=== PATIENT | female | born 1985 | race Caucasian/White ===

== ENCOUNTER → 2017-10-14 | Outpatient (CLI) | payer MEDICARE, OTHER ==
--- NOTE | 2017-10-14 08:56 | CT ---
EXAMINATION TYPE: CT brain wo/w con DATE OF EXAM: 10/14/2017 COMPARISON: 01/04/2016 HISTORY: Patient has no complaints at time of study. 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 CT DLP: 1592 mGycm, Automated exposure control for dose reduction was used. CONTRAST: Patient injected with 100 mL of Isovue 300. CT of the brain is performed utilizing 3 mm thick sections through the posterior fossa and 3 mm thick sections through the remaining calvarium. Study is performed within 24 hours of arrival to the hospital. No abnormal hyperdensity is present to suggest an acute intracranial hemorrhage. There is a large very hypodense area measuring -100 Hounsfield units with peripheral calcifications a long the midline falx displacing the brain laterally. This is explained the lateral ventricles and ex tends towards the third ventricle. Size and configuration of this irregular area is stable from the c omparison. Lateral ventricles appear normal. No temporal horn dilatation is evident. Third ventricle is slightly prominent. Fourth ventricle is normal and midline. No edema is adjacent to this structure. There appears to be preservation of burgos-white matter differe ntiation. No acute infarcts are evident. No abnormal hyperdensity to suggest acute intracranial hemor rhage is evident. Paranasal sinuses and mastoid air cells within the wvaay-ic-toni are clear. IMPRESSIONS: 1. Stable appearing very low density in the midline. Lipoma is within the differential. 2. No acute intracranial process.
== END | disposition home or self-care (01) ==
LOC: RADCTMAIN 07:57
PROVIDERS: ATTEND Family Medicine
DX: R90.89 Other abnormal findings on diagnostic imaging of central nervous system (principal); Z87.898 Personal history of other specified conditions
CPT/HCPCS: 70470; Q9967

== ENCOUNTER 2019-04-20 07:29 | Emergency (ER) | payer MEDICARE, OTHER ==
[2019-04-20] MEDS ORDERED: SODIUM CHLORIDE 0.9% 500 ML 500 ML IV STA (07:38)
[2019-04-20] MEDS ORDERED: ONDANSETRON 4 MG/2 ML VIAL IVP STA (07:38)
[2019-04-20] MEDS ORDERED: SODIUM CHLORIDE 0.9% 1,000 ML IV STA (07:44)
--- NOTE | 2019-04-20 07:54 | ED ---
General Adult HPI - General Chief complaint: Nausea/Vomiting/Diarrhea Stated complaint: NVD Time Seen by Provider: 04/20/19 07:33 Source: patient Mode of arrival: ambulatory Limitations: no limitations - History of Present Illness Initial comments: Dictation was produced using [employer] dictation software. please excuse any grammatical, word or spelling errors. Chief Complaint: 33-year-old female presents with nausea vomiting diarrhea for the last 3 hours. History of Present Illness: 33-year-old female past medical history of cholecystectomy and bilateral tubal ligation. Patient reports with 3 hours of nausea vomiting diarrhea. Patient was brought in because she was having trouble tolerating any fluids. Presents today with mother. Patient states she's been having intermittent episodes of abdominal cramping. She states that her emesis is bilious and containing mucous. Patient also has been having watery diarrhea. Patient denies any abdominal pain currently. She denies any overt sick contacts. The ROS documented in this emergency department record has been reviewed and confirmed by me. Those systems with pertinent positive or negative responses have been documented in the HPI. All other systems are other negative and/or noncontributory. PHYSICAL EXAM: General Impression: Alert and oriented x3, not in acute distress HEENT: Normocephalic atraumatic, extra-ocular movements intact, pupils equal and reactive to light bilaterally, dry mucous membranes Cardiovascular: Heart regular rate and rhythm, S1&S2 audible, no murmurs, rubs or gallops Chest: Lungs clear to auscultation bilaterally, no rhonchi, no wheeze, no rales Abdomen: Bowel sounds present, abdomen soft, non-tender, non-distended, no organomegaly Musculoskeletal: Pulses present and equal in all extremities, no peripheral edema Motor: no focal deficits noted Neurological: CN II-XII grossly intact, no focal motor or sensory deficits noted Skin: Intact with no visualized rashes Psych: Normal affect and mood ED course: 33-year-old female with clinical presentation consistent with gastroenteritis. Vital signs upon arrival are within acceptable limits.Laboratory evaluation obtained. Leukocytosis of 20.4 likely secondary stress. Metabolic panel shows mild anion gap acidosis likely secondary to dehydration. Patient given intravenous fluids antinausea. Patient reevaluated bedside with improvement of symptoms. Clinical presentation consistent with gastroenteritis. Patient feels well and wants be discharge. Patient clear for discharge. Patient given prescription for Zofran ODT's. Return parameters discussed. All questions answered. - Related Data Home Medications Medication Instructions Recorded Confirmed Butalb/APAP/Caff 50-325-40Mg 1 tab PO Q8H PRN 04/20/19 04/20/19 [Fioricet 50-325-40] Cyclobenzaprine [Flexeril] 10 mg PO BID PRN 04/20/19 04/20/19 Sertraline HCl [Zoloft] 50 mg PO HS 04/20/19 04/20/19 traMADol HCL [Ultram] 50 mg PO BID PRN 04/20/19 04/20/19 Previous Rx's Medication Instructions Recorded Ondansetron Odt [Zofran Odt] 4 mg PO Q8HR PRN #12 tab 04/20/19 Allergies Allergy/AdvReac Type Severity Reaction Status Date / Time No Known Allergies Allergy Verified 04/20/19 08:21 Review of Systems ROS Statement: Those systems with pertinent positive or pertinent negative responses have been documented in the HPI. ROS Other: All systems not noted in ROS Statement are negative. Past Medical History Additional Past Medical History / Comment(s): chronic back pain History of Any Multi-Drug Resistant Organisms: None Reported Past Surgical History: Cholecystectomy, Tubal Ligation Past Psychological History: No Psychological Hx Reported Smoking Status: Current every day smoker Past Alcohol Use History: None Reported Past Drug Use History: None Reported General Exam Limitations: no limitations Course Vital Signs 04/20/19 04/20/19 04/20/19 07:30 08:07 09:07 Temperature 97.7 F Pulse Rate 90 89 78 Respiratory 18 18 16 Rate Blood Pressure 111/51 105/48 102/50 O2 Sat by Pulse 98 94 L 96 Oximetry Medical Decision Making - Lab Data Result diagrams: 04/20/19 08:00 04/20/19 08:00 Lab Results 04/20/19 04/20/19 Range/Units 08:00 08:00 WBC 20.4 H (3.8-10.6) k/uL RBC 4.90 (3.80-5.40) m/uL Hgb 14.6 (11.4-16.0) gm/dL Hct 41.8 (34.0-46.0) % MCV 85.4 (80.0-100.0) fL MCH 29.7 (25.0-35.0) pg MCHC 34.8 (31.0-37.0) g/dL RDW 13.0 (11.5-15.5) % Plt Count 411 (150-450) k/uL Neutrophils % 90 % Lymphocytes % 5 % Monocytes % 4 % Eosinophils % 1 % Basophils % 0 % Neutrophils # 18.3 H (1.3-7.7) k/uL Lymphocytes # 1.1 (1.0-4.8) k/uL Monocytes # 0.7 (0-1.0) k/uL Eosinophils # 0.2 (0-0.7) k/uL Basophils # 0.0 (0-0.2) k/uL Sodium 142 (137-145) mmol/L Potassium 4.2 (3.5-5.1) mmol/L Chloride 111 H (98-107) mmol/L Carbon Dioxide 17 L (22-30) mmol/L Anion Gap 14 mmol/L BUN 15 (7-17) mg/dL Creatinine 0.64 (0.52-1.04) mg/dL Est GFR (CKD-EPI)AfAm >90 (>60 ml/min/1.73 sqM) Est GFR (CKD-EPI)NonAf >90 (>60 ml/min/1.73 sqM) Glucose 111 H (74-99) mg/dL Calcium 9.9 (8.4-10.2) mg/dL Total Bilirubin 0.4 (0.2-1.3) mg/dL AST 29 (14-36) U/L ALT 33 (9-52) U/L Alkaline Phosphatase 84 (38-126) U/L Total Protein 7.7 (6.3-8.2) g/dL Albumin 4.6 (3.5-5.0) g/dL Lipase 53 (23-300) U/L Disposition Clinical Impression: Gastroenteritis Disposition: HOME SELF-CARE Condition: Good Instructions (If sedation given, give patient instructions): Acute Nausea and Vomiting (ED), Acute Diarrhea (ED) Prescriptions: Ondansetron Odt [Zofran Odt] 4 mg PO Q8HR PRN #12 tab PRN Reason: Nausea Is patient prescribed a controlled substance at d/c from ED?: No Referrals: Scarlet Kaufman MD [Primary Care Provider] - 1-2 days Time of Disposition: 09:56
[2019-04-20 08:08] VITALS: TEMP 97.7
[2019-04-20 08:32] LABS: ALT 33 U/L (9-52); AST 29 U/L (14-36); African American GFR (CKD) >90 (>60 ml/min/1.73 sqM); Albumin 4.6 g/dL (3.5-5.0); Alkaline Phosphatase 84 U/L (38-126); Anion Gap 14 mmol/L; Blood Urea Nitrogen 15 mg/dL (7-17); Calcium 9.9 mg/dL (8.4-10.2); Carbon Dioxide 17 mmol/L (22-30); Chloride 111 mmol/L (98-107); Glucose 111 mg/dL (74-99); Non-African American GFR(CKD) >90 (>60 ml/min/1.73 sqM); Potassium 4.2 mmol/L (3.5-5.1); Sodium 142 mmol/L (137-145); Total Bilirubin 0.4 mg/dL (0.2-1.3); Total Protein 7.7 g/dL (6.3-8.2)
[2019-04-20 08:55] LABS: Basophils % (A) 0 %; Eosinophils # (A) 0.2 k/uL (0-0.7); Eosinophils % (A) 1 %; HCT 41.8 % (34.0-46.0); HGB 14.6 gm/dL (11.4-16.0); Lymphocytes # (A) 1.1 k/uL (1.0-4.8); Lymphocytes % (A) 5 %; MCH 29.7 pg (25.0-35.0); MCHC 34.8 g/dL (31.0-37.0); MCV 85.4 fL (80.0-100.0); Mean Platelet Volume 6.1; Monocytes # (A) 0.7 k/uL (0-1.0); Monocytes % (A) 4 %; Neutrophils # (A) 18.3 k/uL (1.3-7.7); Neutrophils % (A) 90 %; Platelet Count 411 k/uL (150-450); WBC 20.4 k/uL (3.8-10.6)
[2019-04-20 09:07] VITALS: BP 102/50; PULSE 78; RESP 16
== END 2019-04-20 10:02 | disposition home or self-care (01) ==
LOC: EC 07:29 → MERGE 07:29 → EC 10:02
DX: K52.9 Noninfective gastroenteritis and colitis, unspecified (principal); D72.829 Elevated white blood cell count, unspecified; E87.2 Acidosis; G89.29 Other chronic pain; F17.200 Nicotine dependence, unspecified, uncomplicated; Z79.891 Long term (current) use of opiate analgesic; Z90.49 Acquired absence of other specified parts of digestive tract; Z98.51 Tubal ligation status; Z53.8 Procedure and treatment not carried out for other reasons
CPT/HCPCS: 36415; 80053; 83690; 85025; 99284; 96374; 96361; J2405